=== PATIENT | female | born 1945 | race Caucasian/White ===

== ENCOUNTER → 2017-01-25 | Outpatient (CLI) | payer OTHER, BC | LOC: RAD 05:18 | DX: Z12.31 Encounter for screening mammogram for malignant neoplasm of breast (principal) ==

== ENCOUNTER → 2017-11-01 | Outpatient (CLI) | payer OTHER, BC | LOC: RAD 10-30 08:47 | DX: R07.81 Pleurodynia (principal); N64.4 Mastodynia; R07.9 Chest pain, unspecified ==

== ENCOUNTER → 2018-02-07 | Outpatient (CLI) | payer OTHER, BC | LOC: NUC 00:50 → BC 00:50 | DX: Z12.31 Encounter for screening mammogram for malignant neoplasm of breast (principal); M85.89 Other specified disorders of bone density and structure, multiple sites; Z78.0 Asymptomatic menopausal state ==

== ENCOUNTER → 2019-02-12 | Outpatient (CLI) | payer OTHER, BC | LOC: RAD 01:25 | DX: Z12.31 Encounter for screening mammogram for malignant neoplasm of breast (principal) ==